=== PATIENT | male | born 1990 | race Caucasian/White ===

== ENCOUNTER 2017-07-25 20:12 | Emergency (ER) | payer OTHER ==
[~2017-07-25] VITALS: Ht 172.7 cm; Wt 77.3 kg
[2017-07-25 20:15] VITALS: BP 139/78
== END 2017-07-25 22:15 | disposition home or self-care (01) ==
LOC: EMS 20:15
DX: S00.81XA Abrasion of other part of head, initial encounter (principal); V49.3XXA Car occupant (driver) (passenger) injured in unspecified nontraffic accident, initial encounter; Y93.89 Activity, other specified; Y92.89 Other specified places as the place of occurrence of the external cause; Y99.8 Other external cause status
CPT/HCPCS: 99281

== ENCOUNTER 2020-08-30 07:49 | Emergency (ER) | payer OTHER ==
[~2020-08-30] VITALS: Ht 170.2 cm; Wt 84.5 kg
[2020-08-30 07:53] VITALS: BP 142/63
== END 2020-08-30 09:13 | disposition home or self-care (01) ==
LOC: EMS 07:53
DX: S93.402A Sprain of unspecified ligament of left ankle, initial encounter (principal); W01.0XXA Fall on same level from slipping, tripping and stumbling without subsequent striking against object, initial encounter; Y93.89 Activity, other specified; Y92.89 Other specified places as the place of occurrence of the external cause; Y99.8 Other external cause status
CPT/HCPCS: 29515; 99283

== ENCOUNTER 2021-06-16 20:39 | Emergency (ER) | payer OTHER ==
[~2021-06-16] VITALS: Ht 172.7 cm; Wt 88.6 kg
[2021-06-16] MEDS ORDERED: DOXY50 PO (22:14)
[2021-06-16 22:37] VITALS: BP 116/66
== END 2021-06-16 22:44 | disposition home or self-care (01) ==
LOC: EMS 20:43
DX: L02.01 Cutaneous abscess of face (principal)
CPT/HCPCS: 10060; 99283

== ENCOUNTER 2021-07-08 10:34 | Emergency (ER) | payer OTHER ==
[~2021-07-08] VITALS: Ht 170.2 cm; Wt 40.9 kg
[~2021-07-08 10:34] MED LIST: DOXY50 PO
[2021-07-08 10:35] VITALS: BP 101/61
[2021-07-08] MEDS ORDERED: SODIUM CHLORIDE 0.9% 100 ML ONE (12:06)
[2021-07-08] MEDS ORDERED: IOHEXOL 350 MG/ML 100 ML VIAL ONE (12:06)
[2021-07-08] MEDS ORDERED: CefTRIAXone 1 GM/DEXTROSE 50 ML IV ONE (12:15)
[2021-07-08] MEDS ORDERED: SULFAMETHOX/TRIMETH 10 ML in DEXTROSE 5%-WATER 250 ML IV ONE (12:15)
[2021-07-08 12:34] LABS: BASOPHILS % (AUTO) 0.4 % (0.0-2.0); EOSINOPHILS % (AUTO) 2.2 % (1.0-6.0); HEMATOCRIT 44.5 % (41-53); HEMOGLOBIN 15.1 g/dL (13.5-17.5); LYMPHOCYTES # (AUTO) 1.3 K/uL (1.0-4.8); LYMPHOCYTES % (AUTO) 19.3 % (22.0-44.0); MEAN CORPUSCULAR HEMOGLOBIN 30.3 pg (26.0-34.0); MEAN CORPUSCULAR HGB CONC 33.9 G/dL (31.0-37.0); MEAN CORPUSCULAR VOLUME 90 fL (80-100); MONOCYTES # (AUTO) 0.8 K/uL (0.1-1.0); MONOCYTES % (AUTO) 11.2 % (2.0-9.0); NEUTROPHILS # (AUTO) 4.5 K/uL (1.8-7.7); NEUTROPHILS % (AUTO) 66.9 % (40.0-70.0); PLATELET COUNT (AUTO) 334 K/uL (150-450); RED BLOOD CELL COUNT(AUTO) 4.97 MIL/uL (4.50-5.90); RED CELL DISTRIBUTION WIDTH 14.6 % (11.5-14.5)
[2021-07-08 12:53] LABS: ANION GAP 8 mmol/L (8-16); CALCIUM, TOTAL 9.3 mg/dL (8.8-10.5); CARBON DIOXIDE 30 mmol/L (22-29); CHLORIDE 102 mmol/L (98-107); CREATININE 0.91 mg/dL (0.60-1.30); GLOMERULAR FILTR. RATE CALC > 60 mL/min (>60); GLUCOSE,RANDOM 84 mg/dL (70-110); POTASSIUM 4.2 mmol/L (3.5-5.1); SODIUM SERUM 140 mmol/L (136-145); UREA NITROGEN, BLOOD 11 mg/dL (7-18)
[2021-07-08 12:59] LABS: ALANINE AMINOTRANSFERASE 163 U/L (12-78); ALBUMIN 4.1 g/dL (3.4-5.0); ALKALINE PHOSPHATASE 70 U/L (46-116); ASPARTATE AMINOTRANSFERASE 52 U/L (15-37); BILIRUBIN,TOTAL 0.3 mg/dL (0.1-1.0); TOTAL PROTEIN, SERUM 7.5 g/dL (6.4-8.2)
[2021-07-08] MEDS ORDERED: CEPH-558 PO (14:21)
[2021-07-08] MEDS ORDERED: SULF-261 PO (14:22)
[2021-07-08] MEDS ORDERED: LIDOCAINE 1% 10 ML VIAL ID ONE (14:30)
== END 2021-07-08 15:24 | disposition home or self-care (01) ==
LOC: EMS 10:36
DX: L02.01 Cutaneous abscess of face (principal); L03.211 Cellulitis of face
CPT/HCPCS: 10060; 36415; 70491; 80053; 85025; 87040; 87070; 87205; 96365; 96368; 99285; J0696; J3490 ×2; J7050; J7060; Q9967

== ENCOUNTER 2022-07-21 07:14 | Emergency (ER) | payer OTHER ==
[~2022-07-21] VITALS: Ht 175.3 cm; Wt 81.0 kg
[~2022-07-21 07:14] MED LIST changes: +CEPH-558 PO; +SULF-261 PO
[2022-07-21] MEDS ORDERED: ONDANSETRON HCL 4 MG/2 ML VIAL IVP ONE (08:00)
[2022-07-21] MEDS ORDERED: SODIUM CHLORIDE 0.9% 1,000 ML IV ONE (08:00)
[2022-07-21 08:16] LABS: BASOPHILS % (AUTO) 0.6 % (0.0-2.0); EOSINOPHILS % (AUTO) 1.7 % (1.0-6.0); HEMATOCRIT 46.9 % (41-53); LYMPHOCYTES # (AUTO) 0.9 K/uL (1.0-4.8); MEAN CORPUSCULAR HEMOGLOBIN 31.3 pg (26.0-34.0); MEAN CORPUSCULAR HGB CONC 34.1 G/dL (31.0-37.0); MEAN CORPUSCULAR VOLUME 92 fL (80-100); MONOCYTES # (AUTO) 0.4 K/uL (0.1-1.0); MONOCYTES % (AUTO) 8.8 % (2.0-9.0); NEUTROPHILS # (AUTO) 3.3 K/uL (1.8-7.7); NEUTROPHILS % (AUTO) 69.9 % (40.0-70.0); PLATELET COUNT (AUTO) 302 K/uL (150-450); RED BLOOD CELL COUNT(AUTO) 5.12 MIL/uL (4.50-5.90)
[2022-07-21 09:14] LABS: ANION GAP 9 mmol/L (8-16); CALCIUM, TOTAL 9.8 mg/dL (8.8-10.5); CARBON DIOXIDE 27 mmol/L (22-29); CHLORIDE 103 mmol/L (98-107); CREATININE 0.89 mg/dL (0.60-1.30); GLOMERULAR FILTR. RATE CALC > 60 mL/min (>60); GLUCOSE,RANDOM 94 mg/dL (70-110); POTASSIUM 4.4 mmol/L (3.5-5.1); SODIUM SERUM 139 mmol/L (136-145); UREA NITROGEN, BLOOD 10 mg/dL (7-18)
[2022-07-21 09:19] LABS: ALANINE AMINOTRANSFERASE 36 U/L (12-78); ALBUMIN 4.5 g/dL (3.4-5.0); ALKALINE PHOSPHATASE 64 U/L (46-116); ASPARTATE AMINOTRANSFERASE 18 U/L (15-37); BILIRUBIN,TOTAL 0.4 mg/dL (0.1-1.0); LIPASE 217 U/L (73-393); TOTAL PROTEIN, SERUM 7.8 g/dL (6.4-8.2)
[2022-07-21 09:28] LABS: APPEARANCE,URINE CLEAR (CLEAR); BILIRUBIN,URINE NEGATIVE (NEGATIVE); GLUCOSE, URINE (UA) NEGATIVE (NEGATIVE); KETONES,URINE NEGATIVE (NEGATIVE); LEUKOCYTE ESTERASE ,URINE NEGATIVE (NEGATIVE); NITRATE,URINE NEGATIVE (NEGATIVE); OCCULT BLOOD,URINE NEGATIVE (NEGATIVE); PROTEIN,URINE NEGATIVE (NEGATIVE); SPECIFIC GRAVITIY, URINE 1.009 (1.003-1.030); UROBILINOGEN,URINE <=1.0 mg/dL (<=1.0)
[2022-07-21 10:26] VITALS: BP 138/76
== END 2022-07-21 10:29 | disposition home or self-care (01) ==
LOC: EMS 07:14
DX: F19.10 Other psychoactive substance abuse, uncomplicated (principal); F15.90 Other stimulant use, unspecified, uncomplicated; Z87.891 Personal history of nicotine dependence
CPT/HCPCS: 99283; 96374; 96361; 80053; 81003; 83690; 85025; 36415; J2405; J7030

== ENCOUNTER 2022-12-26 19:25 | Inpatient (IN) | payer MEDICAID, OTHER ==
[~2022-12-26] VITALS: Ht 172.7 cm; Wt 85.7 kg
[2022-12-26 20:36] LABS: BASOPHILS % (AUTO) 0.4 % (0.0-2.0); EOSINOPHILS % (AUTO) 3.6 % (1.0-6.0); HEMATOCRIT 45.7 % (41-53); HEMOGLOBIN 15.4 g/dL (13.5-17.5); LYMPHOCYTES # (AUTO) 1.5 K/uL (1.0-4.8); LYMPHOCYTES % (AUTO) 25.7 % (22.0-44.0); MEAN CORPUSCULAR HEMOGLOBIN 30.6 pg (26.0-34.0); MEAN CORPUSCULAR HGB CONC 33.6 G/dL (31.0-37.0); MEAN CORPUSCULAR VOLUME 91 fL (80-100); MONOCYTES # (AUTO) 0.6 K/uL (0.1-1.0); MONOCYTES % (AUTO) 10.7 % (2.0-9.0); NEUTROPHILS # (AUTO) 3.4 K/uL (1.8-7.7); NEUTROPHILS % (AUTO) 59.6 % (40.0-70.0); PLATELET COUNT (AUTO) 345 K/uL (150-450); RED BLOOD CELL COUNT(AUTO) 5.02 MIL/uL (4.50-5.90); RED CELL DISTRIBUTION WIDTH 14.3 % (11.5-14.5); WHITE BLOOD COUNT (AUTO) 5.7 K/uL (4.5-11.0)
[2022-12-26] MEDS ORDERED: KETOROLAC TROMETHAMINE 30 MG/ML VIAL IM ONE (21:00)
[2022-12-26] MEDS ORDERED: MORPHINE SULFATE 4 MG/ML SYRINGE IVP ONE (21:00)
[2022-12-26 21:07] LABS: ANION GAP 9 mmol/L (8-16); CALCIUM, TOTAL 9.4 mg/dL (8.8-10.5); CARBON DIOXIDE 26 mmol/L (22-29); CHLORIDE 103 mmol/L (98-107); GLOMERULAR FILTR. RATE CALC > 60 mL/min (>60); GLUCOSE,RANDOM 93 mg/dL (70-110); POTASSIUM 3.2 mmol/L (3.5-5.1); SODIUM SERUM 138 mmol/L (136-145); UREA NITROGEN, BLOOD 13 mg/dL (7-18)
[2022-12-26 21:13] LABS: ALANINE AMINOTRANSFERASE 28 U/L (12-78); ALBUMIN 3.9 g/dL (3.4-5.0); ALKALINE PHOSPHATASE 65 U/L (46-116); ASPARTATE AMINOTRANSFERASE 20 U/L (15-37); BILIRUBIN,TOTAL 0.3 mg/dL (0.1-1.0); TOTAL PROTEIN, SERUM 6.9 g/dL (6.4-8.2)
[2022-12-26] MEDS ORDERED: HALOPERIDOL 5 MG TABLET PO PRN (21:45)
[2022-12-26] MEDS ORDERED: LORazepam 2 MG TABLET PO PRN (21:45)
[2022-12-26 21:57] LABS: SALICYLATE 1.1 mg/dL (2.8-20.0)
[2022-12-26 22:05] LABS: ALCOHOL, BLOOD (SERUM) < 3 mg/dL (0-10)
[2022-12-26 22:09] LABS: ACETAMINOPHEN < 2 mcg/mL (10-30)
[2022-12-26 22:13] LABS: TROPONIN I-HIGH SENSITIVITY 5 ng/L (<76)
[2022-12-26 23:27] LABS: COVID AG,FIA SOURCE NASAL SWAB
[2022-12-26 23:45] LABS: SARS-COV2 (COVID) ANTIGEN,FIA Negative (Negative)
[2022-12-27] MEDS ORDERED: POTASSIUM CHLORIDE 10% 40 MEQ/30 ML LIQUID UDCUP PO ONE ×2 (01:00)
[2022-12-27] MEDS: ZOLPIDEM TARTRATE 10 MG TABLET PO PRN ×2 (02:08→20:54)
[2022-12-27 02:20] VITALS: BP 144/62; PULSE 69; RESP 18; TEMP 97.5; O2SAT 98
[2022-12-27] MEDS ORDERED: INFLUENZA VIRUS VACCINE QVS 2023-24 (6MO+)/PF 60 MCG/0.5 ML SYRINGE IM. ONE (04:30)
[2022-12-27 05:11] LABS: APPEARANCE,URINE HAZY (CLEAR); BILIRUBIN,URINE NEGATIVE (NEGATIVE); COLOR,URINE LIGHT YELLOW (YELLOW); GLUCOSE, URINE (UA) NEGATIVE (NEGATIVE); KETONES,URINE NEGATIVE (NEGATIVE); LEUKOCYTE ESTERASE ,URINE NEGATIVE (NEGATIVE); NITRATE,URINE NEGATIVE (NEGATIVE); OCCULT BLOOD,URINE NEGATIVE (NEGATIVE); PROTEIN,URINE NEGATIVE (NEGATIVE); SPECIFIC GRAVITIY, URINE 1.019 (1.003-1.030); UROBILINOGEN,URINE <=1.0 mg/dL (<=1.0)
[2022-12-27 05:17] LABS: ALCOHOL, URINE DRUG SCREEN NEGATIVE (NEGATIVE); AMPHET/METH SCREEN,URINE NEGATIVE (NEGATIVE); BARBITURATE SCREEN, URINE NEGATIVE (NEGATIVE); BENZODIAZEPINES SCREEN,URINE NEGATIVE (NEGATIVE); CANNABINOID SCREEN,URINE POSITIVE (NEGATIVE); COCAINE SCREEN,URINE POSITIVE (NEGATIVE); METHADONE SCREEN, URINE NEGATIVE (NEGATIVE); OPIATE SCREEN,URINE NEGATIVE (NEGATIVE); PHENCYCLIDINE SCREEN,URINE NEGATIVE (NEGATIVE)
[2022-12-27 10:27] VITALS: BP 122/76; PULSE 80; RESP 18; TEMP 98.1; O2SAT 98
[2022-12-27] MEDS ORDERED: DOCUSATE SODIUM 100 MG CAPSULE PO PRN (19:30)
[2022-12-27] MEDS ORDERED: PETROLATUM,WHITE 28 GM JELLY TP PRN (19:30)
[2022-12-27] MEDS ORDERED: CloNIDine HCL 0.1 MG TABLET PO PRN (19:30)
[2022-12-27] MEDS ORDERED: OMEPRAZOLE 20 MG CAPSULE PO PRN (19:30)
[2022-12-27] MEDS ORDERED: ONDANSETRON HCL 4 MG TABLET PO PRN (19:30)
[2022-12-27] MEDS ORDERED: LOPERAMIDE HCL 2 MG CAPSULE PO PRN (19:30)
[2022-12-27] MEDS ORDERED: BENZOCAINE/MENTHOL LOZENGE PO PRN (19:30)
[2022-12-27] MEDS ORDERED: ALBUTEROL SULFATE HFA 90 MCG/PUFF 8 GM INHALER IH PRN (19:30)
[2022-12-27] MEDS ORDERED: ACETAMINOPHEN 325 MG TABLET PO PRN (19:30)
[2022-12-27] MEDS ORDERED: MAGNESIUM HYDROXIDE SUSPENSION 30 ML UDCUP PO PRN (19:30)
[2022-12-27] MEDS ORDERED: BACITRACIN 28 GM OINTMENT TP PRN (19:30)
[2022-12-27] MEDS ORDERED: IBUPROFEN 600 MG TABLET PO PRN (19:30)
[2022-12-27] MEDS ORDERED: MAG HYDROX/AL HYDROX/SIMETH ES 30 ML SUSPENSION UDCUP PO PRN (19:30)
[2022-12-27 21:45] VITALS: RESP 18
[2022-12-28 10:59] VITALS: BP 123/80; PULSE 79; RESP 18; TEMP 98; O2SAT 97
[2022-12-28 20:15] VITALS: BP 119/71; PULSE 78; RESP 18; TEMP 97.6; O2SAT 98
[2022-12-29 09:00] VITALS: BP 126/76; PULSE 60; RESP 16; TEMP 97.2
[2022-12-29] MEDS: ZOLPIDEM TARTRATE 10 MG TABLET PO PRN (21:31)
[2022-12-29 23:51] VITALS: RESP 18
== END 2022-12-30 16:02 | disposition home or self-care (01) | DRG 754 ==
LOC: EMS 19:25 → 3EI 12-27 00:01
PROVIDERS: ADMIT Psychiatry & Neurology Psychiatry; ATTEND Psychiatry & Neurology Psychiatry
DX: F32.9 Major depressive disorder, single episode, unspecified (principal); R45.851 Suicidal ideations; E87.6 Hypokalemia; T65.892A Toxic effect of other specified substances, intentional self-harm, initial encounter; Z20.822 Contact with and (suspected) exposure to COVID-19; F41.9 Anxiety disorder, unspecified; F19.10 Other psychoactive substance abuse, uncomplicated; K59.00 Constipation, unspecified; G47.00 Insomnia, unspecified; F10.90 Alcohol use, unspecified, uncomplicated; Y92.89 Other specified places as the place of occurrence of the external cause; Z79.899 Other long term (current) drug therapy; Z72.0 Tobacco use
CPT/HCPCS: 71045; 80053; 80307; 81003; 84484; 85025; 93005; 99285; G0480; G0481; J1885; 36415-L1; 36415-TC

== ENCOUNTER 2025-01-12 13:36 | Emergency (ER) | payer OTHER ==
[~2025-01-12] VITALS: Ht 172.7 cm; Wt 77.3 kg
[2025-01-12] MEDS: LIDOCAINE 1% 10 ML VIAL SQ ONE (16:05)
[2025-01-12] MEDS: BACITRACIN 0.9 GM PACKET OINTMENT TP ONE (16:53)
[2025-01-12 17:27] VITALS: BP 111/74; PULSE 64; RESP 16; TEMP 98.2; O2SAT 100
== END 2025-01-12 18:00 ==
LOC: EMS 13:57
DX: L02.416 Cutaneous abscess of left lower limb (principal); Z87.891 Personal history of nicotine dependence
CPT/HCPCS: 99284; 10060; J3490